=== PATIENT | female | born 2000 | race Two or more races ===

== ENCOUNTER 2024-09-07 08:38 | Outpatient (AMB) | payer OTHER, SELFPAY ==
--- NOTE | 2024-09-07 08:44 | MHC.PC.OV ---
Vital Signs 09/07/24 08:46 Height 5 ft 6 in Weight 126 lb 2 oz BMI 20.4 BP 100/66 Blood Pressure Location Rt brachial Position Sitting Pulse 65 Pulse Source Pulse Oximeter Pulse Oximetry (%) 99 Oxygen Delivery Method Room Air Intake Visit Reasons: establish care Intake Note: Patient is a new patient here to establish care for Health . Transferring care from unknown . Medical records have not been requested and have not received. Pt decline flu shot today. Barrel Inspector Tight Required: No Caddie Supervisor: Not Required per policy Accompanied by: Self / Same As Patient Allergies No Known Allergies Allergy (Verified 09/07/24 08:57) Medication List - Last Reconciled 09/07/24 by Keyanna Moran PA-C No Known Home Meds Tobacco use date assessed: 09/07/24 Dental Screening Dental Screen Date: 09/07/24 Did you have a dental visit in the last 12 months?: No Did you have a dental problem in the last 6 months where you did not have access to dental care?: No Was dental information given to patient?: Patient has dentist HPI establish care HPI Details 23-year-old female coming to the office for the 1st time. [place] [facility] [place] she was last being seen by Pediatrics in [facility]. She has a history of presyncopal episodes starting when she was 15 years old. Her last episode was about 2 weeks ago and previously to that was about 8 months ago. She states she will often skip meals and we will typically only have 1 meal a day at 04:00 o'clock in the afternoon occasionally will have a 2nd meal at 9PM. She states she drinks plenty of water 3-4 bottles per day. She does have a family history of diabetes mellitus. She also mentions having occasional dizziness and presyncope with the heat that typically resolves with her splashing water on her face. She was having frequent UTIs which have stopped after . She is following with her deployment technician for this concern. [facility] Medical History (Updated 09/07/24 @ 09:22 by Keyanna Moran PA-C) Recurrent UTI Syncope Surgical History No pertinent past surgical history Family History Father Diabetes mellitus Paternal Grandfather Diabetes mellitus Paternal Grandmother Diabetes mellitus Social History Housing: House Alcohol intake: never Patient Tobacco Use Status: Never used Tobacco e-Cigarette/Vaping Use: Currently Using Second Hand Smoke Exposure: No service: No Current occupational status: employed Current occupation: Oil Exploration Engineer at [employer] Cognitive needs: No Hearing needs: No Vision needs: Yes (Contacts) Female Reproductive History Menstrual control method: none Total pregnancies: 1 Ab induced: 1 History of abnormal pap smear: No Other: last pap 07/2024 Questionnaire PHQ-9 Over the last 2 weeks, how often have you been bothered by any of the following problems? 1. Little interest or pleasure in doing things: not at all 2. Feeling down, depressed, or hopeless: not at all 3. Trouble falling or staying asleep, or sleeping too much: not at all 4. Feeling tired or having little energy: not at all 5. Poor appetite or overeating: not at all 6. Feeling bad about yourself - or that you are a failure or have let yourself or your family down: not at all 7. Trouble concentrating on things, such as reading the newspaper or watching television: not at all 8. Moving or speaking so slowly that other people could have noticed. Or the opposite - being so fidgety or restless that you have been moving around a lot more than usual: not at all 9. Thoughts that you would be better off or of hurting yourself in some way: not at all Total score: 0 Depression Screening Interpretation: Negative Depression Screening Done: Yes Source: Developed by Drs. Brad Magallon, Aubrie Eli, Roddy Romeo and colleagues, with an educational charu from [email or web address]. Thrive Questionnaire Date Thrive assessed: 09/07/24 I am a: Patient What is your living situation today?: I have a steady place to live Within the past 12 months, did the food you bought not last and you didn't have the money to get more?: Never true Within the past 12 months, did you worry whether your food would run out before you got money to buy more?: Never true Do you have trouble paying for medicines?: No Do you have trouble getting transportation to medical appointments?: No Do you have trouble paying your heating and electricity bill?: No Do you have trouble taking care of your child, family member or friend?: No Do you have trouble with day-to-day activities such as bathing, preparing meals, shopping, managing finances, etc.?: No Are you currently unemployed and looking for a job?: No Are you interested in more education?: No Please select the resources that you would like help with: None Currently or been in a relationship where the following occur: No concerns reported THRIVE Score: 0 AUDIT C Alcohol Use Questionnaire (AUDIT-C) 1. How often do you have a drink containing alcohol?: Never Total Score: 0 EVELIN-7 AMB Questionnaire EVELIN-7 Date EVELIN - 7 assessed: 09/07/24 Feeling nervous, anxious, or on edge: 0 = Not at all Not being able to stop or control worryin = Not at all Worrying too much about different things: 0 = Not at all Trouble relaxin = Not at all Being so restless that it is hard to sit still: 0 = Not at all Becoming easily annoyed or irritable: 0 = Not at all Feeling afraid as if something awful might happen: 0 = Not at all Total EVELIN-7 score (0-4 normal; 5-9 mild; 10-14 moderate; 15-21 severe): 0 Source: Developed by Drs. Brad Magallon, Aubrie Eli, Roddy Romeo and colleagues, with an educational charu from [email or web address]. EVELIN-7 Assessment Billing EVELIN-7 Assessment Tool: EVELIN-7 Assessment 45836 Review of Systems Const Denies body aches, Denies fatigue, Denies fever(s), Denies frequent falls, Denies headache(s) and Denies weakness Eyes Reports no additional complaints and Denies change in vision ENT Denies dizziness, Denies facial pain, Denies headache(s) and Denies nasal congestion Card Denies chest pain, Denies syncope, Denies irregular heart rhythm, Denies leg edema, Denies lightheadedness and Denies dyspnea Resp Denies cough and Denies dyspnea GI Denies abdominal pain, Denies constipation, Denies dyspepsia, Denies diarrhea, Denies nausea and Denies vomiting Denies urinary frequency, Denies dysuria, Denies urinary hesitancy and Denies urinary urgency Musc Denies back pain and Denies myalgias Skin/Breast Reports system reviewed and no additional complaints, except as documented Neuro Denies dizziness, Denies syncope, Denies frequent falls, Denies headache(s) and Denies weakness Psych Reports no additional complaints Endo Denies fatigue Physical exam (Primary Care) Vital Signs: Last Vital Signs Pulse 65 09/07/24 08:46 BP 100/66 09/07/24 08:46 Pulse Ox 99 09/07/24 08:46 Oxygen Delivery Method Room Air 09/07/24 08:46 BMI result Body Mass Index 20.4 Tobacco/Smoking Status: Tobacco use Status Tobacco use date assessed 09/07/24 09/07/24 08:54 Patient Tobacco Use Status Never used Tobacco 09/07/24 08:54 e-Cigarette/Vaping Use Currently Using 09/07/24 08:54 PHQ-9: PHQ-9 Score PHQ-9: Total score 0 09/07/24 08:54 Depression Screening Interpretation: Negative Thrive Assessment: Date of Thrive Assessment Date Thrive assessed 09/07/24 09/07/24 08:54 Currently or been in a relationship where the following occur: No concerns reported Const General: cooperative, healthy appearing, comfortable and no acute distress Orientation/consciousness: patient oriented x3 HENMT Head: Yes normocephalic Ears: hearing grossly normal bilaterally General nose exam: Normal external nose present Eyes General: appearance normal, both eyes and all related structures Conjunctivae: conjunctivae normal Neck Neck: Yes full ROM and Yes no lymphadenopathy Resp Effort & Inspection: normal respiratory effort Auscultation: clear to auscultation bilaterally, no crackles, no rales, no rhonchi and no wheezes Cardio Rate: regular rate Rhythm: regular rhythm Skin General skin exam: no rashes or lesions noted Neuro General: patient oriented x3 Gait exam (Neuro): Normal gait present Extrem General: Yes normal to inspection, Yes full ROM and No edema Psych Affect: normal affect Attitude: cooperative Insight: Good insight present (Psych) Judgement: Good judgement present (Psych) Coding Level of Care Code New Pt Level 4 (09376) Diagnoses Pre-syncope R55 Screening for cervical cancer Z12.4 Additional Codes EVELIN-7 Assessment Billing - EVELIN-7 Assessment Tool: EVELIN-7 Assessment 51253 ([id number]) Assessment & Plan Assessment & Plan (1) Pre-syncope: Code(s): R55 - Syncope and collapse Category: Medical Plan: Patient complaining of occasional episodes of feeling lightheaded and seeing spots. This has been ongoing since she was 15 years old and we will occasionally have the lightheadedness due to the heat that resolves with splashing water on her face and sometimes we will have it due to low blood sugar. Patient states she typically will skip meals and does not eat until 4 in the afternoon and often this is her only meal of the day. Recommend patient scheduling meals a.m., noon and p.m. and making sure to increase her protein intake with protein bars or protein shakes. We will also order for blood work to look for underlying cause but likely this is related to her blood sugar dropping. Patient denies any palpitations or chest pains. Can consider Holter monitor to look for underlying arrhythmia but we will work on lifestyle modification 1st. (2) Screening for cervical cancer: Code(s): Z12.4 - Encounter for screening for malignant neoplasm of cervix Category: Medical Plan: Patient follows with [facility] and recently had Pap smear last month and will follow up with them later this month. Plan This note was constructed using voice recognition software. While every effort has been made to ensure accuracy and blackjack supervisor, still areas may have been included sometimes these areas may affect the content or meeting of the given symptoms. Total time spent caring for the patient today was thirty minutes. This includes time spent before the visit reviewing the chart, time spent during the visit, and time spent after the visit and documentation. Orders: Orders Vitamin D 25-OH Total Today R55 - Syncope and collapse, Z00.00 - Encounter for general adult medical examination without abnormal findings Comprehensive Met. Panel Today R55 - Syncope and collapse, Z00.00 - Encounter for general adult medical examination without abnormal findings Hemoglobin A1c Today E11.65 - Type 2 diabetes mellitus with hyperglycemia, R55 - Syncope and collapse TSH reflex Free T4 Today R55 - Syncope and collapse, Z00.00 - Encounter for general adult medical examination without abnormal findings Free T4 (Free Thyroxine) Today R55 - Syncope and collapse, Z00.00 - Encounter for general adult medical examination without abnormal findings Vitamin B12 and Folate Today R55 - Syncope and collapse, Z00.00 - Encounter for general adult medical examination without abnormal findings Complete Blood Count Auto Diff Today R55 - Syncope and collapse, Z00.00 - Encounter for general adult medical examination without abnormal findings
[2024-09-07 08:46] VITALS: BP 100/66; PULSE 65; O2SAT 99; BMI 20.4
== END 2024-09-07 09:12 | disposition home or self-care (01) ==
DX: R55 Syncope and collapse (principal); Z12.4 Encounter for screening for malignant neoplasm of cervix

== ENCOUNTER 2024-09-07 08:39 | Outpatient (REF) | payer OTHER, SELFPAY ==
[2024-09-07 09:46] LABS: MANUAL DIFF FLAG NO
[2024-09-07 10:20] LABS: Basophils Percent Auto 0.6 % (0-2); Eosinophils Absolute Auto 0.1 X10*3/uL (0.0-0.4); Eosinophils Percent Auto 1.7 % (0-4); Hematocrit 39.4 % (37.0-47.0); Hemoglobin 12.7 g/dl (12.0-16.0); Imm Gran Abs Auto 0.01 X10*3/uL (0.00-0.03); Imm Gran Pct Auto 0.2 % (0.0-0.4); Lymphocytes Percent Auto 46.4 % (20-40); Mean Corpuscular HGB Conc 32.2 g/dl (31.0-35.0); Mean Corpuscular Hemoglobin 29.1 pg (27.0-33.0); Mean Corpuscular Volume 90.4 fL (80.0-98.0); Mean Platelet Volume 9.9 fL (9.4-12.3); Monocytes Absolute Auto 0.5 X10*3/uL (0.1-1.2); Monocytes Percent Auto 7.8 % (2-11); Neutrophils Absolute Auto 2.8 x10*3/uL (2.0-8.3); Neutrophils Percent Auto 43.3 % (45-73); Platelet Count 304 X10*3/uL (160-400); Red Blood Count 4.36 X10*6/uL (4.20-5.50); Red Cell Distribution Width 11.7 % (11.0-16.0); White Blood Count 6.6 X10*3/uL (4.8-10.8)
[2024-09-07 10:30] LABS: Estimated Average Glucose 103 mg/dL; Hemoglobin A1c % 5.2 % (<6.0); Total Hemoglobin (HGBA1C) 3246.5205 umol/L
[2024-09-07 11:03] LABS: Alanine Aminotransferase 16 U/L (0-31); Albumin Level 4.2 g/dL (3.5-5.0); Alkaline Phosphatase 68 U/L (39-117); Anion Gap 10 (12-20); Aspartate Amino Transferase 23 U/L (5-31); Bilirubin Total 0.2 mg/dL (0.0-1.0); Blood Urea Nitrogen 9 mg/dL (9-16); Calcium 9.5 mg/dL (8.4-10.2); Carbon Dioxide 28 mmol/L (22-29); Chloride 106 mmol/L (96-108); Estimated Glomerular Filt Rate > 60; Free T4 (Free Thyroxine) 0.98 ng/dL (0.71-1.85); Glucose Random 91 mg/dL (60-115); Potassium 3.8 mmol/L (3.3-5.1); Sodium 140 mmol/L (135-145); Total Protein 7.3 g/dL (6.5-8.0); Vitamin D 25-OH Total 10.2 ng/mL (>30)
[2024-09-07 11:43] LABS: Folate 9.6 ng/mL (> or = 4.0); Vitamin B12 434 pg/mL (200-900)
== END 2024-09-07 08:40 | disposition home or self-care (01) ==
LOC: HO.LAB 08:39
DX: R55 Syncope and collapse (principal); Z00.00 Encounter for general adult medical examination without abnormal findings; E11.65 Type 2 diabetes mellitus with hyperglycemia
CPT/HCPCS: 36415; 80053; 82306; 82607; 82746; 83036; 84439; 84443; 85025; 96127; 99202